=== PATIENT | male | born 1965 | race African-American/Black ===

== ENCOUNTER 2017-01-14 09:44 | Inpatient (IN) | payer OTHER ==
[2017-01-14 10:21] VITALS: BMI 29.8
[2017-01-14] MEDS ORDERED: hydrOXYzine PAMOATE 50 MG CAPSULE (FP) PO PRN (12:09)
[2017-01-14] MEDS ORDERED: MAG HYDROX/AL HYDROX/SIMETH 30 ML UNIT-DOSE CUP PO PRN (12:09)
[2017-01-14] MEDS ORDERED: chlordiazePOXIDE HCL 25 MG CAPSULE PO PRN (12:09)
[2017-01-14] MEDS ORDERED: MAGNESIUM HYDROX 2400MG/30ML ORAL SUSPENSION 30 ML CUP PO PRN (12:09)
[2017-01-14] MEDS ORDERED: LOPERAMIDE HCL 2 MG CAPSULE PO PRN (12:09)
[2017-01-14] MEDS ORDERED: MENTHOL/PHENOL 1 EACH UD MM PRN (12:09)
[2017-01-14] MEDS ORDERED: guaiFENesin/D-METHORPHAN HB 10 ML UNIT-DOSE CUPS PO PRN (12:09)
[2017-01-14] MEDS ORDERED: diphenhydrAMINE HCL 50 MG CAPSULE PO PRN (12:09)
[2017-01-14] MEDS ORDERED: IBUPROFEN 400 MG TABLET (FP) PO PRN (12:09)
[2017-01-14] MEDS ORDERED: P-EPHED 60MG/TRIPROLIDI 2.5MG TABLET PO PRN (12:09)
[2017-01-14] MEDS ORDERED: MAGNESIUM CITRATE 300 ML BOTTLE PO PRN (12:09)
[2017-01-14] MEDS ORDERED: NICOTINE POLACRILEX 4 MG GUM BUC PRN (12:09)
[2017-01-14] MEDS ORDERED: ACETAMINOPHEN 325 MG TABLET (FP) PO PRN (12:09)
[2017-01-14] MEDS ORDERED: METHADONE HCL 10 MG TABLET (FOR DETOX USE ONLY) PO ONE ×2 (12:09→23:00)
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
[2017-01-14] MEDS ORDERED: chlordiazePOXIDE HCL 25 MG CAPSULE PO ONE (12:42)
[2017-01-14] MEDS: chlordiazePOXIDE HCL 25 MG CAPSULE PO SCH ×2 (17:33→22:09)
[2017-01-14 17:40] LABS: URINE APPEARANCE CLEAR; URINE BILIRUBIN NEGATIVE (NEGATIVE); URINE BLOOD 1+ (NEGATIVE); URINE COLOR YELLOW; URINE GLUCOSE (UA) NEGATIVE (NEGATIVE); URINE KETONE NEGATIVE (NEGATIVE); URINE LEUK ESTERASE NEGATIVE (NEGATIVE); URINE NITRITE NEGATIVE (NEGATIVE); URINE PROTEIN NEGATIVE (NEGATIVE)
[2017-01-14 19:23] LABS: URINE MUCUS RARE; URINE RBC 3 /hpf (0-3)
--- NOTE | 2017-01-14 21:12 | EKG ---
Test Reason : Blood Pressure : / mmHG Vent. Rate : 074 BPM Atrial Rate : 074 BPM P-R Int : 110 ms QRS Dur : 068 ms QT Int : 396 ms P-R-T Axes : 062 038 048 degrees QTc Int : 439 ms SINUS RHYTHM NONSPECIFIC T WAVE ABNORMALITY NO PREVIOUS ECGS AVAILABLE CLINICAL CORRELATION IS RECOMMENDED Confirmed by PAWEL MOORE MD ([id number]) on 01/14/2017 9:11:34 PM Referred By: Confirmed By:PAWEL MOORE MD
[2017-01-14] MEDS: THIAMINE HCL 100 MG TABLET (FP) PO SCH (22:09)
[2017-01-15] MEDS: chlordiazePOXIDE HCL 25 MG CAPSULE PO SCH ×4 (05:50→22:11)
[2017-01-15 09:58] LABS: MCHC 32.8 g/dl (32.0-35.9); MEAN CELL VOLUME 88.6 fl (80-96); MEAN PLT VOLUME 9.7 fl (7.5-11.1); PLATELET COUNT 211 K/MM3 (134-434); WHITE BLOOD COUNT 5.7 K/mm3 (4.0-10.0)
[2017-01-15] MEDS ORDERED: METHADONE HCL 10 MG TABLET (FOR DETOX USE ONLY) PO SCH (10:00)
[2017-01-15] MEDS: PRENATAL VITAMINS W/ FOLIC ACID TABLET (FP) PO SCH (10:15)
[2017-01-15] MEDS: NICOTINE 21 MG/24 HOURS TOPICAL PATCH TD SCH (10:16)
[2017-01-15 10:33] LABS: ALBUMIN 3.4 g/dl (3.4-5.0); ALK PHOS 83 U/L (45-117); ANION GAP 7 (8-16); BILIRUBIN,TOTAL 0.4 mg/dL (0.2-1.0); CO2 27 mmol/L (21-32); CREATININE 1.1 mg/dL (0.7-1.3); GLUCOSE,RANDOM 83 mg/dL (74-106); SGOT/AST 15 U/L (15-37); SGPT/ALT 15 U/L (12-78); TOT PROT 7.2 g/dl (6.4-8.2)
--- NOTE | 2017-01-15 12:32 | PN ---
[facility] CIWA - CIWA Score Nausea/Vomitin-Mild Nausea/No Vomiting Muscle Tremors: 3 Anxiety: 4-Mod. Anxious/Guarded Agitation: 3 Paroxysmal Sweats: 2 Orientation: 0-Oriented Tacttile Disturbances: 3-Moderate Itch/Numb/Burn Auditory Disturbances: 0-None Visual Disturbances: 0-None Headache: 0-None Present CIWA-Ar Total Score: 16 BHS COWS - Scale Resting Pulse: 0= [place] 80 or Below Sweatin= Chills/Flushing Restless Observation: 1= Difficult to Sit Still Pupil Size: 0= Normal to Room Light Bone or Joint Aches: 1= Mild Discomfort Runny Nose/ Eye Tearin= Runny Nose/Eyes GI Upset > 30mins: 1= Stomach Cramp Tremor Observation of Outstretched Hands: 2= Slight Tremor Visible Yawning Observation: 2= >3x During Session Anxiety or Irritability: 2=Irritable/Anxious Goose Flesh Skin: 3=Piloerection COWS Score: 15 [facility] Progress Note (SOAP) Subjective: Sweating, Tremors, Anxious. Objective: PT. A & O X 3, OBSERVED AMBULATING ON UNIT. NO ACUTE DISTRESS. 01/15/17 12:34 Vital Signs Temperature 97.1 F L 01/15/17 09:36 Pulse Rate 71 01/15/17 09:36 Respiratory Rate 18 01/15/17 09:36 Blood Pressure 108/71 01/15/17 09:36 O2 Sat by Pulse Oximetry (%) Laboratory Tests 01/14/17 01/15/17 01/15/17 17:06 06:20 06:20 WBC 5.7 D RBC 4.43 Hgb 12.9 Hct 39.2 MCV 88.6 MCH 29.0 MCHC 32.8 RDW 13.0 Plt Count 211 MPV 9.7 Sodium 139 Potassium 4.0 Chloride 105 Carbon Dioxide 27 Anion Gap 7 L BUN 20 H D Creatinine 1.1 Creat Clearance w eGFR > 60 Random Glucose 83 D Calcium 9.0 Total Bilirubin 0.4 AST 15 D ALT 15 D Alkaline Phosphatase 83 Total Protein 7.2 Albumin 3.4 Urine Color Yellow Urine Appearance Clear Urine pH 5.0 Ur Specific [place] >= 1.030 H Urine Protein Negative Urine Glucose (UA) Negative Urine Ketones Negative Urine Blood 1+ H Urine Nitrite Negative Urine Bilirubin Negative Urine Urobilinogen 2.0 Ur Leukocyte Esterase Negative Urine RBC 3 Urine WBC None Urine Mucus Rare RPR Titer 01/15/17 06:20 WBC RBC Hgb Hct MCV MCH MCHC RDW Plt Count MPV Sodium Potassium Chloride Carbon Dioxide Anion Gap BUN Creatinine Creat Clearance w eGFR Random Glucose Calcium Total Bilirubin AST ALT Alkaline Phosphatase Total Protein Albumin Urine Color Urine Appearance Urine pH Ur Specific [place] Urine Protein Urine Glucose (UA) Urine Ketones Urine Blood Urine Nitrite Urine Bilirubin Urine Urobilinogen Ur Leukocyte Esterase Urine RBC Urine WBC Urine Mucus RPR Titer Nonreactive labs noted. Assessment: 01/15/17 12:34 WITHDRAWAL SYMPTOMS. Plan: CONTINUE DETOX. INCREASE PO FLUID INTAKE.
[2017-01-15] MEDS: THIAMINE HCL 100 MG TABLET (FP) PO SCH (22:11)
[2017-01-16] MEDS: chlordiazePOXIDE HCL 25 MG CAPSULE PO SCH ×2 (06:15→10:24)
[2017-01-16] MEDS ORDERED: METHADONE HCL 5 MG TABLET (FOR DETOX USE ONLY) PO SCH (10:00)
[2017-01-16] MEDS: PRENATAL VITAMINS W/ FOLIC ACID TABLET (FP) PO SCH (10:24)
[2017-01-16] MEDS: NICOTINE 21 MG/24 HOURS TOPICAL PATCH TD SCH (10:25)
--- NOTE | 2017-01-16 10:40 | PN ---
[facility] CIWA - CIWA Score Nausea/Vomitin-No Nausea/No Vomiting Muscle Tremors: 2 Anxiety: 3 Agitation: 4-Moderately Restless Paroxysmal Sweats: 2 Orientation: 0-Oriented Tacttile Disturbances: 0-None Auditory Disturbances: 0-None Visual Disturbances: 0-None Headache: 0-None Present CIWA-Ar Total Score: 11 S COWS - Scale Resting Pulse: 0= [place] 80 or Below Sweatin= Chills/Flushing Restless Observation: 1= Difficult to Sit Still Pupil Size: 0= Normal to Room Light Bone or Joint Aches: 1= Mild Discomfort Runny Nose/ Eye Tearin= None GI Upset > 30mins: 1= Stomach Cramp Tremor Observation of Outstretched Hands: 1= Tremor [place], Not Seen Yawning Observation: 0= None Anxiety or Irritability: 2=Irritable/Anxious Goose Flesh Skin: 0=Smooth Skin COWS Score: 7 S Progress Note (SOAP) Subjective: Nausea,anxiety,tremors,sweating,interrupted sleep,restless Objective: 01/16/17 10:38 Vital Signs - 8 hr 01/16/17 01/16/17 01/16/17 04:17 06:39 09:38 Temperature 98.1 F 98.4 F Pulse Rate 66 67 Respiratory 18 18 18 Rate Blood Pressure 124/79 112/70 Laboratory Last Values WBC 5.7 K/mm3 (4.0-10.0) D 01/15/17 06:20 RBC 4.43 M/mm3 (4.00-5.60) 01/15/17 06:20 Hgb 12.9 GM/dL (11.7-16.9) 01/15/17 06:20 Hct 39.2 % (35.4-49) 01/15/17 06:20 MCV 88.6 fl (80-96) 01/15/17 06:20 MCH 29.0 pg (25.7-33.7) 01/15/17 06:20 MCHC 32.8 g/dl (32.0-35.9) 01/15/17 06:20 RDW 13.0 % (11.9-15.9) 01/15/17 06:20 Plt Count 211 K/MM3 (134-434) 01/15/17 06:20 MPV 9.7 fl (7.5-11.1) 01/15/17 06:20 Sodium 139 mmol/L (136-145) 01/15/17 06:20 Potassium 4.0 mmol/L (3.5-5.1) 01/15/17 06:20 Chloride 105 mmol/L (98-107) 01/15/17 06:20 Carbon Dioxide 27 mmol/L (21-32) 01/15/17 06:20 Anion Gap 7 (8-16) L 01/15/17 06:20 BUN 20 mg/dL (7-18) H D 01/15/17 06:20 Creatinine 1.1 mg/dL (0.7-1.3) 01/15/17 06:20 Creat Clearance w eGFR > 60 (>60) 01/15/17 06:20 Random Glucose 83 mg/dL (74-106) D 01/15/17 06:20 Calcium 9.0 mg/dL (8.5-10.1) 01/15/17 06:20 Total Bilirubin 0.4 mg/dL (0.2-1.0) 01/15/17 06:20 AST 15 U/L (15-37) D 01/15/17 06:20 ALT 15 U/L (12-78) D 01/15/17 06:20 Alkaline Phosphatase 83 U/L (45-117) 01/15/17 06:20 Total Protein 7.2 g/dl (6.4-8.2) 01/15/17 06:20 Albumin 3.4 g/dl (3.4-5.0) 01/15/17 06:20 Urine Color Yellow 01/14/17 17:06 Urine Appearance Clear 01/14/17 17:06 Urine pH 5.0 (5.0-8.0) 01/14/17 17:06 Ur Specific [place] >= 1.030 (1.005-1.025) H 01/14/17 17:06 Urine Protein Negative (NEGATIVE) 01/14/17 17:06 Urine Glucose (UA) Negative (NEGATIVE) 01/14/17 17:06 Urine Ketones Negative (NEGATIVE) 01/14/17 17:06 Urine Blood 1+ (NEGATIVE) H 01/14/17 17:06 Urine Nitrite Negative (NEGATIVE) 01/14/17 17:06 Urine Bilirubin Negative (NEGATIVE) 01/14/17 17:06 Urine Urobilinogen 2.0 mg/dL (0.2-1.0) 01/14/17 17:06 Ur Leukocyte Esterase Negative (NEGATIVE) 01/14/17 17:06 Urine RBC 3 /hpf (0-3) 01/14/17 17:06 Urine WBC None /hpf (3-5) 01/14/17 17:06 Urine Mucus Rare 01/14/17 17:06 RPR Titer Nonreactive (NONREACTIVE) 01/15/17 06:20 labs noted Assessment: 01/16/17 10:39 Withdrawal sx. Plan: Continue detox
[2017-01-16] MEDS: chlordiazePOXIDE 5 MG CAPSULE PO SCH ×2 (17:53→22:17)
[2017-01-16 22:01] VITALS: TEMP 97.2
[2017-01-16] MEDS: THIAMINE HCL 100 MG TABLET (FP) PO SCH (22:17)
[2017-01-16 22:31] VITALS: BP 109/64; PULSE 69
[2017-01-17] MEDS: chlordiazePOXIDE 5 MG CAPSULE PO SCH (05:54)
--- NOTE | 2017-01-17 07:19 | PN ---
S Progress Note Note: PATIENT DID NOT WANT TO COMPETE TREATMENT,SIGNED RELEASE AMA,DID NOT WANT TO WAIT
--- NOTE | 2017-01-17 07:22 | DS ---
[facility] Detox Discharge Summary Admission Date: 01/14/17 Discharge Date: 01/17/17 - History Present History: Alcohol Dependence, Opioid Dependence Additional Comments: PATIENT DID NOT WANT TO COMPLETE TREATMENT,SIGNED RELEASE AMA,DID NOT WANT TO WAIT Pertinent Past History: NICOTINE DEPENDENCE - Physical Exam Results Vital Signs: Vital Signs Temperature 97.2 F L 01/16/17 22:31 Pulse Rate 69 01/16/17 22:31 Respiratory Rate 18 01/17/17 03:30 Blood Pressure 109/64 01/16/17 22:31 O2 Sat by Pulse Oximetry (%) Pertinent Admission Physical Exam Findings: WITHDRAWAL SYMPTOM - Medication Discharge Medications: Ambulatory Orders NK [No Known Home Medication] 02/10/14 - AMA Did Patient Leave Against Medical Advice: Yes
[2017-01-17] MEDS ORDERED: chlordiazePOXIDE HCL 10 MG CAPSULE PO SCH (17:00)
[2017-01-18] MEDS ORDERED: METHADONE HCL 5 MG TABLET (FOR DETOX USE ONLY) PO SCH (06:00)
[2017-01-18] MEDS ORDERED: METHADONE HCL 10 MG TABLET (FOR DETOX USE ONLY) PO SCH (10:00)
== END 2017-01-17 07:46 | disposition left against medical advice (07) | DRG 770 ==
LOC: YASAS 09:44 → Y3N 11:16
PROVIDERS: ADMIT Internal Medicine; ATTEND Internal Medicine
PROC: HZ2ZZZZ Detoxification Services for Substance Abuse Treatment (ICD-10-PCS; principal; 2017-01-14)
DX: F11.23 Opioid dependence with withdrawal (principal); F10.230 Alcohol dependence with withdrawal, uncomplicated; F14.20 Cocaine dependence, uncomplicated; F17.210 Nicotine dependence, cigarettes, uncomplicated
CPT/HCPCS: 36415; 80053; 81003; 81015; 85027; 86593; 93005; 93010